=== PATIENT | female | born 1980 | race African-American/Black ===

== ENCOUNTER 2016-09-09 18:57 | Emergency (ER) | payer SELFPAY ==
[~2016-09-09] VITALS: Ht 165.1 cm; Wt 56.7 kg
[2016-09-09 18:57] VITALS: BP 134/69
[2016-09-09] MEDS ORDERED: HYDROmorphone PF 1 MG/ML DISP.SYRIN IV ONE (19:15)
[2016-09-09] MEDS ORDERED: ONDANSETRON PF 4 MG/2 ML VIAL. IV ONE (19:15)
[2016-09-09] MEDS ORDERED: ONDA4TAB7 PO (19:17)
[2016-09-09] MEDS ORDERED: MORP15TA PO (19:17)
--- NOTE | 2016-09-09 19:17 | PHYS DOC ---
Past History Past Medical History: Other Past Surgical History: Other Alcohol Use: Occasionally Drug Use: None Adult General Chief Complaint Chief Complaint: ABDOMINAL PAIN HPI HPI 36-year-old female presenting to the emergency department today with periumbilical abdominal pain this started about an hour ago. She describes it as a sharp pain that is moderate nonradiating and without alleviating factors. It is not migrating. It is not associated with nausea or vomiting. She denies constipation fevers chills. Last menstrual period was between 4-6 weeks ago. He denies vaginal bleeding. Review of systems is negative for chest pain shortness of breath fevers chills. All other review of systems is negative unless otherwise noted in history of present illness. Review of Systems Review of Systems SEE ABOVE. Current Medications Current Medications Current Medications Medications (Trade) Dose Ordered Sig/George Start Time Stop Time Status Last Admin Dose Admin Hydromorphone HCl (Dilaudid) 0.5 mg 1X ONCE 09/09/16 19:15 09/09/16 19:16 Ondansetron HCl (Zofran) 4 mg 1X ONCE 09/09/16 19:15 09/09/16 19:16 Allergies Allergies Allergies Coded Allergies Type Severity Reaction Last Updated Verified No Known Drug Allergies 11/13/15 No Physical Exam Physical Exam Constitutional: Well developed, well nourished, no acute distress, non-toxic appearance. HENT: Normocephalic, atraumatic, bilateral external ears normal, oropharynx moist, no oral exudates, nose normal. [] Eyes: PERRLA, EOMI, conjunctiva normal, no discharge. Neck: Normal range of motion, no tenderness, supple, no stridor. Cardiovascular:Heart rate regular rhythm, no murmur [] Lungs & Thorax: Bilateral breath sounds clear to auscultation Abdomen: Abdomen is soft and minimally tender in the periumbilical region. No rebound tenderness or guarding present. Negative McBurney's point. Negative Frausto sign. Skin: Warm, dry, no erythema, no rash. [] Back: No tenderness, no CVA tenderness. Extremities: No tenderness, no cyanosis, no clubbing, ROM intact, no edema. Neurologic: Alert and oriented X 3, normal motor function, normal sensory function, no focal deficits noted. [] Psychologic: Affect normal, judgement normal, mood normal. EKG EKG [] Radiology/Procedures Radiology/Procedures [] Course & Med Decision Making Course & Med Decision Making Pertinent Labs and Imaging studies reviewed. (See chart for details) [] 36-year-old female presenting to the emergency department with abdominal pain. Afebrile with a normal heart rate. Pertinent physical exam findings showed minimal tenderness in the periumbilical region. Labs were obtained. test was positive. Beta hCG elevated. Ultrasound showed possible early intrauterine without evidence of ectopic . Repeat abdominal exam showed a nontender soft abdomen. A positive blood type. The patient's pain was treated with hydromorphone and Zofran. On reexamination the patient's symptoms had improved. I recommended the patient get an outpatient repeat ultrasound and beta hCG level in 2-3 days through our obstetrics group. She demonstrated verbal understanding and return precautions were given. The patient was then discharged home in stable condition to follow up with their primary care physician over the next 2-3 days. They were to return if their symptoms worsened or if they were concerned for any reason. Irug-ho-oxds discharge instructions and return precautions were given. Patient's questions were answered to their satisfaction. Patient is comfortable plan. Dragon Disclaimer Dragon Disclaimer This chart was dictated in whole or in part using Voice Recognition software in a busy, high-work load, and often noisy Emergency Department environment. It may contain unintended and wholly unrecognized errors or omissions. Departure Departure: Impression: Primary Impression: Periumbilical abdominal pain Additional Impression: Disposition: 01 HOME, SELF-CARE Condition: STABLE Referrals: PCP,NO (PCP) NAZIA STRATTON MD Patient Instructions: Abdominal Pain Additional Instructions: Thank you for allowing us to participate in your care today. Followup with your primary care physician in 3 days if your symptoms do not improve. If you do not have a primary care provider you can ask for a list of our primary care providers. Return to the emergency department you have any new or concerning findings. This should be evaluated by the primary care physician and any necessary consulting services for continued management within a few days after discharge. Return to emergency room if you have any new or concerning symptoms including but not limited to fever, chills, nausea, vomiting, intractable pain, any new rashes, chest pain, shortness of air, uncontrolled bleeding, difficulty breathing, and/or vision loss. You may have been prescribed medication that can change in your level of thinking and ability to operate machinery. These medications include hydrocodone and Ativan. Also, Benadryl has been known to do this as well. Be sure to check with your pharmacist and ask if the medications you've prescribed can affect your level of consciousness. I recommend not operating heavy machinery or driving while on medication such as these. Scripts Ondansetron Hcl (ZOFRAN) 4 Mg Tablet 1 TAB PO PRN Q6HRS Y for NAUSEA, #6 TAB Prov: LEBRON NICHOLS MD 09/09/16 Problem Qualifiers LEBRON NICHOLS MD September 09, 2016 19:17
[2016-09-09 19:54] LABS: BASO # 0.1 x10^3/uL (0.0-0.2); BASO % 1 % (0-3); EOS # 0.1 x10^3/uL (0.0-0.7); EOS % 1 % (0-3); HEMATOCRIT 36.7 % (36.0-47.0); HEMOGLOBIN 12.3 g/dL (12.0-15.5); LYMPH # 3.6 x10^3/uL (1.0-4.8); LYMPH % 36 % (24-48); MEAN CORPUSCULAR HEMOGLOBIN 29 pg (25-35); MEAN CORPUSCULAR HGB CONC 34 g/dL (31-37); MEAN CORPUSCULAR VOLUME 87 fL (79-100); MONO # 0.4 x10^3/uL (0.0-1.1); MONO % 4 % (0-9); NEUT # 5.7 x10^3uL (1.8-7.7); NEUT % 58 % (31-73); PLATELET COUNT 186 x10^3/uL (140-400); WHITE BLOOD COUNT 9.9 x10^3/uL (4.0-11.0)
[2016-09-09 20:05] LABS: BILIRUBIN,URINE NEG (NEG); CLARITY,URINE HAZY; COLOR,URINE STRAW; GLUCOSE,URINE NEG (NEG); NITRITE,URINE NEG (NEG); RBC,URINE OCC /HPF (0-2); UROBILINOGEN,URINE 0.2 mg/dL (0.2 mg/dL)
[2016-09-09 20:06] LABS: ALBUMIN 3.7 g/dL (3.4-5.0); CALCIUM 8.6 mg/dL (8.5-10.1); CREATININE 0.5 mg/dL (0.6-1.0); DIRECT BILIRUBIN 0.1 mg/dL (0.0-0.2); GFR 169.9; POTASSIUM 3.8 mmol/L (3.5-5.1); TOTAL BILIRUBIN 0.3 mg/dL (0.2-1.0); TOTAL PROTEIN 6.9 g/dL (6.4-8.2)
[2016-09-09 20:07] LABS: AMORPHOUS SEDIMENT,UR PRESENT /HPF; BACTERIA,URINE 0 /HPF (0-FEW); SQUAMOUS EPITHELIAL CELL,UR MOD /LPF
[2016-09-09 20:13] LABS: PREG TEST PT QUAL POSITIVE (NEG)
[2016-09-09] MEDS ORDERED: IOHEXOL 300 MG/ML 75 ML VIAL. IV ONE (20:15)
--- NOTE | 2016-09-09 22:01 | RAD ---
PROCEDURE Ob ultrasound 1st trimester and transvaginal OB ultrasound HISTORY Abdominal pain TECHNIQUE Sonographic examination of the was performed by transabdominal and endovaginal technique. Multiple static images were obtained. OB ULTRASOUND 1ST TRIMESTER: The uterus measures 9.7 x 5.1 centimeters. There is a gestational sac. TRANSVAGINAL OB ULTRASOUND: The mean sac diameter of 1.26 centimeters corresponds with a 6 week 1 day gestational age. There is a yolk sac seen. There is no pole identified. The right ovary appears normal with normal blood flow measures 2.8 x 2.0 by 1.9 centimeters. The left ovary measures 3.7 x 2.4 by 2.3 centimeters ANCA and contains a 2.7 by 2.0 centimeter corpus luteal cyst. The LMP of 08/14/2016 corresponds with a 3 week 5 day gestational age estimated date of confinement May 21. The estimated size of 6 weeks 1 day corresponds with an estimated date of confinement of 05/04/2017. IMPRESSION There is a gestational sac and yolk sac in the uterus. A pole is not seen. An early intrauterine is possible. Recommend correlation with serial quantitative beta HCG versus a short-term followup ultrasound in order to document viability. Electronically signed by: Rickey Chen MD (September 09, 2016 22:00:13)
== END 2016-09-09 22:30 | disposition home or self-care (01) ==
LOC: ER 18:57
DX: R10.33 Periumbilical pain (principal); Z33.1 Pregnant state, incidental
CPT/HCPCS: 36415; 76801; 80048; 80076; 81001; 83690; 84702; 84703; 85027; 86850; 86900; 86901; 96374; 96375; 99285; J1170; J2405

== ENCOUNTER 2016-10-30 07:46 | Emergency (ER) | payer OTHER ==
[~2016-10-30] VITALS: Ht 165.1 cm; Wt 56.7 kg
[~2016-10-30 07:46] MED LIST: MORP15TA PO; ONDA4TAB7 PO
[2016-10-30] MEDS ORDERED: fentaNYL PF 100 MCG/2 ML VIAL IV PRN (08:15)
--- NOTE | 2016-10-30 08:44 | ED.ADGEN ---
Past History Past Medical History: UTI, Other Past Surgical History: Other Alcohol Use: Occasionally Drug Use: None Adult General Chief Complaint Chief Complaint Abdominal pain HPI HPI Patient is a 36 year old [place] female who presents with pain. She is a G6P for his last ventral period ended on August 02, 2016. She was diagnosed with a after she passed out in July but has not had a chance to follow-up for any OB care yet. She states she's been having intermittent abdominal pain that started in September she states is in the bilateral lower quadrants comes and goes she states they resolve by themselves. She states she's been having green stools and is normally regular with one bowel movement daily and out's every other day. She states, more hard and some of them are soft. She states today she bent over to warp picker a 5 pound bucket and started having left lower quadrant sharp pains is made better when she lays on her right side. She states she had a normal bowel movement and was passing gas last night. She denies any nausea or vomiting. She states she used to have Mirena but had PID and numerous trichomoniasis infections and the Mirena was placed incorrectly and had to be removed. Review of Systems Review of Systems Constitutional: Denies fever or chills [] Eyes: Denies change in visual acuity, redness, or eye pain [] HENT: Denies nasal congestion or sore throat [] Respiratory: Denies cough or shortness of breath [] Cardiovascular: No additional information not addressed in HPI [] GI: Positive for abdominal pain, Denies nausea, vomiting, bloody stools or diarrhea [] : Denies dysuria or hematuria [] Musculoskeletal: Denies back pain or joint pain [] Integument: Denies rash or skin lesions [] Neurologic: Denies headache, focal weakness or sensory changes [] Endocrine: Denies polyuria or polydipsia [] Current Medications Current Medications Current Medications Medications (Trade) Dose Ordered Sig/George Start Time Stop Time Status Last Admin Dose Admin Fentanyl Citrate (Fentanyl 2ml Vial) 50 mcg PRN Q15MIN PRN 10/30/16 08:15 10/31/16 08:14 10/30/16 09:01 50 MCG Ondansetron HCl (Zofran) 4 mg 1X ONCE 10/30/16 09:00 10/30/16 09:01 DC Allergies Allergies Allergies Coded Allergies Type Severity Reaction Last Updated Verified No Known Drug Allergies 11/13/15 No Physical Exam Physical Exam Constitutional: Well developed, well nourished, no acute distress, non-toxic appearance. [] HENT: Normocephalic, atraumatic, bilateral external ears normal, oropharynx moist, no oral exudates, nose normal. [] Eyes: PERRLA, EOMI, conjunctiva normal, no discharge. [] Neck: Normal range of motion, no tenderness, supple, no stridor. [] Cardiovascular:Heart rate regular rhythm, no murmur [] Lungs & Thorax: Bilateral breath sounds clear to auscultation [] Abdomen/pelvic: Bowel sounds normal, soft, no tenderness, no masses, no pulsatile masses. No cervical motion tenderness, mild tender palpation left lower quadrant, no bleeding noted Skin: Warm, dry, no erythema, no rash. [] Back: No tenderness, no CVA tenderness. [] Extremities: No tenderness, no cyanosis, no clubbing, ROM intact, no edema. [] Neurologic: Alert and oriented X 3, normal motor function, normal sensory function, no focal deficits noted. [] Psychologic: Affect normal, judgement normal, mood normal. [] Current Patient Data Vital Signs Vital Signs Date Time Temp Pulse Resp B/P (MAP) Pulse Ox O2 Delivery O2 Flow Rate FiO2 10/30/16 12:16 71 18 107/55 (72) 99 Room Air 10/30/16 07:46 98.4 Lab Results Laboratory Tests Test 10/30/16 08:30 10/30/16 08:34 Urine Collection Type Unknown Urine Color Yellow Urine Clarity Hazy Urine pH 7.5 Urine Specific Melvin 1.015 Urine Protein Neg (NEG-TRACE) Urine Glucose (UA) Neg mg/dL (NEG) Urine Ketones (Stick) Neg mg/dL (NEG) Urine Blood Trace (NEG) Urine Nitrite Neg (NEG) Urine Bilirubin Neg (NEG) Urine Urobilinogen Dipstick 0.2 mg/dL (0.2 mg/dL) Urine Leukocyte Esterase Neg (NEG) Urine RBC 1-2 /HPF (0-2) Urine WBC Occ /HPF (0-4) Urine Squamous Epithelial Cells Few /LPF Urine Bacteria 0 /HPF (0-FEW) Urine Mucus Slight /LPF White Blood Count 13.1 x10^3/uL (4.0-11.0) H Red Blood Count 4.10 x10^6/uL (3.50-5.40) Hemoglobin 12.2 g/dL (12.0-15.5) Hematocrit 36.8 % (36.0-47.0) Mean Corpuscular Volume 90 fL (79-100) Mean Corpuscular Hemoglobin 30 pg (25-35) Mean Corpuscular Hemoglobin Concent 33 g/dL (31-37) Red Cell Distribution Width 17.0 % (11.5-14.5) H Platelet Count 224 x10^3/uL (140-400) Neutrophils (%) (Auto) 75 % (31-73) H Lymphocytes (%) (Auto) 19 % (24-48) L Monocytes (%) (Auto) 5 % (0-9) Eosinophils (%) (Auto) 1 % (0-3) Basophils (%) (Auto) 0 % (0-3) Neutrophils # (Auto) 9.8 x10^3uL (1.8-7.7) H Lymphocytes # (Auto) 2.5 x10^3/uL (1.0-4.8) Monocytes # (Auto) 0.7 x10^3/uL (0.0-1.1) Eosinophils # (Auto) 0.1 x10^3/uL (0.0-0.7) Basophils # (Auto) 0.0 x10^3/uL (0.0-0.2) Prothrombin Time 9.6 SEC (9.4-11.4) Prothrombin Time INR 0.9 (0.9-1.1) PTT 25 SEC (23-33) Maternal Serum HCG Beta Subunit 68690 mIU/mL (0-6) H Sodium Level 137 mmol/L (136-145) Potassium Level 4.1 mmol/L (3.5-5.1) Chloride Level 103 mmol/L (98-107) Carbon Dioxide Level 26 mmol/L (21-32) Anion Gap 8 (6-14) Blood Urea Nitrogen 7 mg/dL (7-20) Creatinine 0.4 mg/dL (0.6-1.0) L Estimated GFR (Cockcroft-Gault) 219.8 Glucose Level 84 mg/dL (70-99) Calcium Level 8.4 mg/dL (8.5-10.1) L Magnesium Level 1.8 mg/dL (1.8-2.4) Total Bilirubin 0.3 mg/dL (0.2-1.0) Direct Bilirubin 0.1 mg/dL (0.0-0.2) Aspartate Amino Transferase (AST) 12 U/L (15-37) L Alanine Aminotransferase (ALT) 19 U/L (14-59) Alkaline Phosphatase 54 U/L (46-116) Total Protein 6.8 g/dL (6.4-8.2) Albumin 3.4 g/dL (3.4-5.0) Lipase 103 U/L (73-393) Microbiology 10/30/16 Wet Prep - Final, Complete Microbiology 10/30/16 Wet Prep - Final, Complete EKG EKG [] Radiology/Procedures Radiology/Procedures [address] [address] IMAGING REPORT Signed PATIENT: DANILO DE LUNA ACCOUNT: [id number] : 1980 LOCATION: ER AGE: 36 SEX: F EXAM STATUS: REG ER ORD. PHYSICIAN: DAMIEN GRIFFITH MD REASON: abd pain PROCEDURE: ABDOMEN COMPLETE Abdominal ultrasound, 10/30/2016: History: Severe abdominal pain The gallbladder is within normal limits in size. There is no sonographic evidence of cholelithiasis. The gallbladder bates are not thickened. No bile duct dilatation is seen. There is no evidence of a hepatic mass. The visualized portions of the kidneys, spleen, aorta and inferior vena cava are unremarkable. There is no evidence of a pancreatic mass. There is slight prominence of the pancreatic duct measuring approximately 3 mm. No abnormal peripancreatic fluid collection is evident. IMPRESSION: 1. Slight prominence of the pancreatic duct. 2. The abdominal ultrasound is otherwise unremarkable. DICTATED AND SIGNED BY: SHANA MAC MD DATE: 10/30/16 0959 CC: DAMIEN GRIFFITH MD; PCP,NO ~ [address] [address] IMAGING REPORT Signed PATIENT: DANILO DE LUNA ACCOUNT: [id number] : 1980 LOCATION: ER AGE: 36 SEX: F EXAM STATUS: REG ER ORD. PHYSICIAN: DAMIEN GRIFFITH MD REASON: abd pain PROCEDURE: OB <14 WKS Obstetrical ultrasound, 10/30/2016: History: Abdominal pain Transabdominal scans were obtained. The uterus is enlarged. It contains a single fetus in a variable orientation. The biparietal diameter measures 2.2 cm compatible with a gestational age of 13-14 weeks. This yields a sonographic EDC of 05/03/2017. activity and heart motion are seen. The heart rate was 162 bpm. An accurate survey cannot be performed at this early stage. A normal amount of an IV fluid is present. The developing placenta lies posteriorly. No periplacental hemorrhage is seen. The cervical length is 3.4 cm. There is a 2.1 cm cyst in the left ovary. There is blood flow in the left ovary. The right ovary could not be visualized. No free fluid is evident in the pelvis. IMPRESSION: 1. Single viable intrauterine fetus of 13-14 weeks gestational age as described above. 2. Small left ovarian cyst. DICTATED AND SIGNED BY: SHANA MAC MD DATE: 10/30/16 1003 CC: DAMIEN GRIFFITH MD; PCP,NO ~ RUN DATE: 10/30/16 [facility] LAB *LIVE* PAGE 1 RUN TIME: 1257 Specimen Inquiry PATIENT: DANILO DE LUNA ACCT: [id number] LOC: U : [id number] AGE/SX: 36/F ROOM: REG : 10/30/[address]: DAMIEN GRIFFITH MD : 1980 BED: DIS : STATUS: REG ER TLOC: SPEC #: [id number] LAMIN: 10/30/16 STATUS: COMP REQ #: [id number] RECD: 10/30/[address]: DAMIEN GRIFFITH MD SOURCE: VAGINAL ENTR: 10/30/[address]: [address] SPDESC: ORDERED: WET PREP COMMENTS: Has specimen been collected/obtained? Y Procedure Result WET PREP Final YEAST NONE SEEN TRICHOMONAS NONE SEEN CLUE CELLS CLUE CELLS PRESENT WBCS MODERATE SQUAMOUS EPS MODERATE END OF REPORT Course & Med Decision Making Course & Med Decision Making Pertinent Labs and Imaging studies reviewed. (See chart for details) Ultrasound was able visualize a left ovary and had good blood flow and this is where she is tender at. They were unable to visualize the right ovary. On pelvic exam she is mildly tender on the left lower quadrant. She does have BV and will treat with clindamycin for 7 days. She states she feels better and wanting to go home. I offered her treatment for sexual transmitted infections and she states that time she had sex is and she got back in July. She will need to follow-up with OB. She is instructed not to take Motrin or other nonsteroidals for she's and use Tylenol for discomfort and pain. She is not worried about a sexual transmitted infection is less time she had sex was in July when she became . She denies any vaginal discharge or bleeding. She is instructed to return back to ER for worsening pain, fevers, bleeding or other concerns. She is also written a prescription for vitamins and given a list of OB's in the [place] area. Final Impression Final Impression Bacterial vaginosis Abdominal pain in Problems: Dragon Disclaimer Dragon Disclaimer This electronic medical record was generated, in whole or in part, using a voice recognition dictation system. DAMIEN GRIFFITH MD Oct 30, 2016 08:43
[2016-10-30 08:45] LABS: BASO % 0 % (0-3); EOS # 0.1 x10^3/uL (0.0-0.7); EOS % 1 % (0-3); HEMATOCRIT 36.8 % (36.0-47.0); HEMOGLOBIN 12.2 g/dL (12.0-15.5); LYMPH # 2.5 x10^3/uL (1.0-4.8); LYMPH % 19 % (24-48); MEAN CORPUSCULAR HEMOGLOBIN 30 pg (25-35); MEAN CORPUSCULAR HGB CONC 33 g/dL (31-37); MEAN CORPUSCULAR VOLUME 90 fL (79-100); MONO # 0.7 x10^3/uL (0.0-1.1); MONO % 5 % (0-9); NEUT # 9.8 x10^3uL (1.8-7.7); NEUT % 75 % (31-73); PLATELET COUNT 224 x10^3/uL (140-400); WHITE BLOOD COUNT 13.1 x10^3/uL (4.0-11.0)
[2016-10-30] MEDS ORDERED: ONDANSETRON PF 4 MG/2 ML VIAL. IV ONE ×2 (09:00)
[2016-10-30 09:08] LABS: ALBUMIN 3.4 g/dL (3.4-5.0); CALCIUM 8.4 mg/dL (8.5-10.1); CREATININE 0.4 mg/dL (0.6-1.0); DIRECT BILIRUBIN 0.1 mg/dL (0.0-0.2); GFR 219.8; MAGNESIUM 1.8 mg/dL (1.8-2.4); POTASSIUM 4.1 mmol/L (3.5-5.1); TOTAL BILIRUBIN 0.3 mg/dL (0.2-1.0); TOTAL PROTEIN 6.8 g/dL (6.4-8.2)
[2016-10-30 09:39] LABS: BACTERIA,URINE 0 /HPF (0-FEW); BILIRUBIN,URINE NEG (NEG); CLARITY,URINE HAZY; COLOR,URINE YELLOW; GLUCOSE,URINE NEG (NEG); NITRITE,URINE NEG (NEG); SQUAMOUS EPITHELIAL CELL,UR FEW /LPF; UROBILINOGEN,URINE 0.2 mg/dL (0.2 mg/dL); WBC,URINE OCC /HPF (0-4)
--- NOTE | 2016-10-30 10:27 | RAD ---
Abdominal ultrasound, 10/30/2016: History: Severe abdominal pain The gallbladder is within normal limits in size. There is no sonographic evidence of cholelithiasis. The gallbladder bates are not thickened. No bile duct dilatation is seen. There is no evidence of a hepatic mass. The visualized portions of the kidneys, spleen, aorta and inferior vena cava are unremarkable. There is no evidence of a pancreatic mass. There is slight prominence of the pancreatic duct measuring approximately 3 mm. No abnormal peripancreatic fluid collection is evident. IMPRESSION: 1. Slight prominence of the pancreatic duct. 2. The abdominal ultrasound is otherwise unremarkable.
--- NOTE | 2016-10-30 10:27 | RAD ---
Obstetrical ultrasound, 10/30/2016: History: Abdominal pain Transabdominal scans were obtained. The uterus is enlarged. It contains a single fetus in a variable orientation. The biparietal diameter measures 2.2 cm compatible with a gestational age of 13-14 weeks. This yields a sonographic EDC of 05/03/2017. activity and heart motion are seen. The heart rate was 162 bpm. An accurate survey cannot be performed at this early stage. A normal amount of an IV fluid is present. The developing placenta lies posteriorly. No periplacental hemorrhage is seen. The cervical length is 3.4 cm. There is a 2.1 cm cyst in the left ovary. There is blood flow in the left ovary. The right ovary could not be visualized. No free fluid is evident in the pelvis. IMPRESSION: 1. Single viable intrauterine fetus of 13-14 weeks gestational age as described above. 2. Small left ovarian cyst.
[2016-10-30] MEDS ORDERED: CLIN300C8 PO (13:21)
[2016-10-30 13:33] VITALS: BP 123/70
[2016-10-31 19:09] LABS: CHLAMYDIA PROBE Negative (Negative)
== END 2016-10-30 13:35 | disposition home or self-care (01) ==
LOC: ER 07:46
DX: O26.891 Other specified pregnancy related conditions, first trimester (principal); N76.0 Acute vaginitis; O23.41 Unspecified infection of urinary tract in pregnancy, first trimester; Z3A.00 Weeks of gestation of pregnancy not specified
CPT/HCPCS: 36415; 76700; 76801; 80048; 80076; 81001; 83690; 83735; 84702; 85027; 85610; 85730; 87491; 87591; 96374; 99285; J3010; Q0111

== ENCOUNTER → 2016-11-02 | Outpatient (CLI) | payer OTHER ==
[~2016-11-02] MED LIST changes: +CLIN300C8 PO; +cefTRIAXone IM 250 MG VIAL IM ONE
[2016-11-02 12:06] VITALS: BP 143/77
--- NOTE | 2016-11-02 12:30 | NUR ---
Pt ambulated to unit for IM injection. VS taken per flowsheet. Rocephin IM given in right upper arm. Pt tolerated it well. Pt ambulated off unit.
== END | disposition home or self-care (01) ==
LOC: OPS 11:55
PROVIDERS: ATTEND Emergency Medicine
DX: A74.89 Other chlamydial diseases (principal)
CPT/HCPCS: 96372; J0696

== ENCOUNTER 2017-02-07 21:08 | Emergency (ER) | payer SELFPAY ==
[~2017-02-07] VITALS: Ht 165.1 cm; Wt 65.8 kg
[~2017-02-07 21:08] MED LIST changes: -cefTRIAXone IM 250 MG VIAL IM ONE
[2017-02-07] MEDS ORDERED: IV NORMAL SALINE 1,000ML 1,000 ML IV SCH (21:48)
[2017-02-07 22:18] LABS: BASO # 0.1 x10^3/uL (0.0-0.2); BASO % 1 % (0-3); EOS # 0.1 x10^3/uL (0.0-0.7); EOS % 1 % (0-3); HEMATOCRIT 31.9 % (36.0-47.0); LYMPH # 2.8 x10^3/uL (1.0-4.8); LYMPH % 22 % (24-48); MEAN CORPUSCULAR HEMOGLOBIN 31 pg (25-35); MEAN CORPUSCULAR HGB CONC 35 g/dL (31-37); MEAN CORPUSCULAR VOLUME 90 fL (79-100); MONO # 0.7 x10^3/uL (0.0-1.1); MONO % 5 % (0-9); NEUT # 9.1 x10^3uL (1.8-7.7); NEUT % 71 % (31-73); PLATELET COUNT 238 x10^3/uL (140-400); RED BLOOD COUNT 3.55 x10^6/uL (3.50-5.40); RED CELL DISTRIBUTION WIDTH 13.3 % (11.5-14.5); WHITE BLOOD COUNT 12.7 x10^3/uL (4.0-11.0)
[2017-02-07 22:34] LABS: AMPHETAMINE/METHAMPHETAMINE NEG (NEG); BARBITURATES NEG (NEG); BENZODIAZEPINES NEG (NEG); CANNABINOIDS POS (NEG); COCAINE NEG (NEG); METHADONE NEG (NEG); OPIATES NEG (NEG); PHENCYCLIDINE NEG (NEG)
[2017-02-07 22:40] LABS: CLARITY,URINE CLOUDY; COLOR,URINE AMBER; GLUCOSE,URINE NEG (NEG)
[2017-02-07 22:41] LABS: BACTERIA,URINE FEW /HPF (0-FEW); BILIRUBIN,URINE NEG (NEG); NITRITE,URINE NEG (NEG); SQUAMOUS EPITHELIAL CELL,UR FEW /LPF; UROBILINOGEN,URINE 1 mg/dL (0.2 mg/dL); WBC,URINE >40 /HPF (0-4)
[2017-02-07 22:47] LABS: ALBUMIN 2.9 g/dL (3.4-5.0); ALBUMIN/GLOBULIN RATIO 0.8 (1.0-1.7); CALCIUM 8.6 mg/dL (8.5-10.1); CREATININE 0.4 mg/dL (0.6-1.0); GFR 219.8; POTASSIUM 3.5 mmol/L (3.5-5.1); TOTAL BILIRUBIN 0.3 mg/dL (0.2-1.0); TOTAL PROTEIN 6.5 g/dL (6.4-8.2)
--- NOTE | 2017-02-07 23:38 | RAD ---
Limited OB ultrasound History: Pelvic pain, . Findings: There is a single intrauterine gestation in cephalic presentation. The placenta is posterior in location without evidence of placenta previa. The amount of amniotic fluid appears appropriate. Amniotic fluid index is 9.0 cm. Cervix is not well seen. Biometric data is as follows: BPD = 6.89 cm for 27 weeks 5 days. HC = 26.30 cm for 28 weeks 4 days. AC = 21.54 cm for 26 weeks 0 days. FL = 5.21 cm for 27 weeks 5 days. HC/AC = 1.22, within normal limits. Overall, the average ultrasound age is 27 weeks 4 days for an estimated date of delivery of May 05, 2017. Estimated gestational age by last menstrual period calculation is 27 weeks 0 days. Estimated weight is 1012 +/- 150 grams which is at 47th percentile. A 4 chamber heart is identified with positive cardiac activity. The estimated heart rate is 153 beats per minute. Complete survey of anomalies was not performed. Maternal ovaries are not visualized. IMPRESSION: 1. Single live intrauterine with average ultrasound age of 27 weeks 4 days. Electronically signed by: Jerome Irene MD (02/07/2017 11:34 PM) [facility]
--- NOTE | 2017-02-08 00:52 | ED.ADGEN ---
Past History Past Medical History: No Pertinent History Past Surgical History: No Surgical History Alcohol Use: None Drug Use: None Adult General Chief Complaint Chief Complaint ".. I am ... and It has been hurting really bad.,,, to pee..." HPI HPI Patient is a 36 year old female who presents with above hx and complaints of dysuria. Pt. denies any vaginal discharge or abdomen pain related to . Patient normally follows with . This is patient's 6 th . Has 4 live births and 1 Miscarry. Patient denies any trauma. Patient denies any immunosuppression. Patient denies any travel. Review of Systems Review of Systems Constitutional: Denies fever or chills [] Eyes: Denies change in visual acuity, redness, or eye pain [] HENT: Denies nasal congestion or sore throat [] Respiratory: Denies cough or shortness of breath [] Cardiovascular: No additional information not addressed in HPI [] GI: Denies abdominal pain, nausea, vomiting, bloody stools or diarrhea [] : Complains of dysuria and hematuria [] Musculoskeletal: Denies back pain or joint pain [] Integument: Denies rash or skin lesions [] Neurologic: Denies headache, focal weakness or sensory changes [] Endocrine: Denies polyuria or polydipsia [] Family History Family History Noncontributory Current Medications Current Medications Current Medications Medications (Trade) Dose Ordered Sig/George Start Time Stop Time Status Last Admin Dose Admin Ceftriaxone Sodium 1 gm/ Sodium Chloride 50 ml @ 100 mls/hr 1X ONCE 02/08/17 02:15 02/08/17 02:44 DC 02/08/17 02:15 100 MLS/HR Ceftriaxone Sodium (Rocephin) 1 gm STK-MED ONCE 02/08/17 02:25 02/08/17 02:26 DC Phenazopyridine HCl (Pyridium) 100 mg 1X ONCE 02/08/17 02:45 02/08/17 03:04 DC 02/08/17 02:45 100 MG Sodium Chloride 50 ml @ As Directed STK-MED ONCE 02/08/17 02:25 02/08/17 02:26 DC Allergies Allergies Allergies Coded Allergies Type Severity Reaction Last Updated Verified No Known Drug Allergies 11/13/15 No Physical Exam Physical Exam Constitutional: Well developed, well nourished, no acute distress, non-toxic appearance. [] HENT: Normocephalic, atraumatic, bilateral external ears normal, oropharynx moist, no oral exudates, nose normal. [] Eyes: PERRLA, EOMI, conjunctiva normal, no discharge. [] Neck: Normal range of motion, no tenderness, supple, no stridor. [] Cardiovascular:Heart rate regular rhythm, no murmur [] Lungs & Thorax: Bilateral breath sounds equal at apexes with scattered wheezes on auscultation [] Abdomen: Bowel sounds normal, soft, no generalized tenderness, no masses, no pulsatile masses. Gravid. movements. heart rate 150s. No obvious external vaginal discharge. Mild suprapubic tenderness Skin: Warm, dry, no erythema, no rash. [] Back: No tenderness, no CVA tenderness. [] Extremities: No tenderness, no cyanosis, no clubbing, ROM intact, no edema. [] Neurologic: Alert and oriented X 3, normal motor function, normal sensory function, no focal deficits noted. [] Psychologic: Affect anxious, judgement normal, mood normal. [] Current Patient Data Vital Signs Vital Signs Date Time Temp Pulse Resp B/P (MAP) Pulse Ox O2 Delivery O2 Flow Rate FiO2 02/07/17 22:15 91 18 142/77 (98) 100 Room Air 02/07/17 21:08 98.4 Lab Results Laboratory Tests Test 02/07/17 21:32 White Blood Count 12.7 x10^3/uL (4.0-11.0) H Red Blood Count 3.55 x10^6/uL (3.50-5.40) Hemoglobin 11.0 g/dL (12.0-15.5) L Hematocrit 31.9 % (36.0-47.0) L Mean Corpuscular Volume 90 fL (79-100) Mean Corpuscular Hemoglobin 31 pg (25-35) Mean Corpuscular Hemoglobin Concent 35 g/dL (31-37) Red Cell Distribution Width 13.3 % (11.5-14.5) Platelet Count 238 x10^3/uL (140-400) Neutrophils (%) (Auto) 71 % (31-73) Lymphocytes (%) (Auto) 22 % (24-48) L Monocytes (%) (Auto) 5 % (0-9) Eosinophils (%) (Auto) 1 % (0-3) Basophils (%) (Auto) 1 % (0-3) Neutrophils # (Auto) 9.1 x10^3uL (1.8-7.7) H Lymphocytes # (Auto) 2.8 x10^3/uL (1.0-4.8) Monocytes # (Auto) 0.7 x10^3/uL (0.0-1.1) Eosinophils # (Auto) 0.1 x10^3/uL (0.0-0.7) Basophils # (Auto) 0.1 x10^3/uL (0.0-0.2) Prothrombin Time 9.8 SEC (9.4-11.4) Prothrombin Time INR 1.0 (0.9-1.1) PTT 24 SEC (23-33) Urine Collection Type Unknown Urine Color Suzy Urine Clarity Cloudy Urine pH 6.5 Urine Specific [place] 1.025 Urine Protein 30 mg/dl (NEG-TRACE) Urine Glucose (UA) Neg mg/dL (NEG) Urine Ketones (Stick) >=160 mg/dL (NEG) Urine Blood Mod (NEG) Urine Nitrite Neg (NEG) Urine Bilirubin Neg (NEG) Urine Urobilinogen Dipstick 1 mg/dL (0.2 mg/dL) Urine Leukocyte Esterase Large (NEG) Urine RBC 6-10 /HPF (0-2) Urine WBC >40 /HPF (0-4) Urine Squamous Epithelial Cells Few /LPF Urine Bacteria Few /HPF (0-FEW) Urine Mucus Mod /LPF Sodium Level 135 mmol/L (136-145) L Potassium Level 3.5 mmol/L (3.5-5.1) Chloride Level 103 mmol/L (98-107) Carbon Dioxide Level 22 mmol/L (21-32) Anion Gap 10 (6-14) Blood Urea Nitrogen 12 mg/dL (7-20) Creatinine 0.4 mg/dL (0.6-1.0) L Estimated GFR (Cockcroft-Gault) 219.8 BUN/Creatinine Ratio 30 (6-20) H Glucose Level 112 mg/dL (70-99) H Calcium Level 8.6 mg/dL (8.5-10.1) Total Bilirubin 0.3 mg/dL (0.2-1.0) Aspartate Amino Transferase (AST) 13 U/L (15-37) L Alanine Aminotransferase (ALT) 19 U/L (14-59) Alkaline Phosphatase 79 U/L (46-116) Creatine Kinase 76 U/L (26-192) Creatine Kinase MB (Mass) 1.1 ng/mL (0.0-3.6) Creatine Kinase MB Relative Index 1.4 % (0-4) Total Protein 6.5 g/dL (6.4-8.2) Albumin 2.9 g/dL (3.4-5.0) L Albumin/Globulin Ratio 0.8 (1.0-1.7) L Lipase 189 U/L (73-393) Urine Opiates Screen Neg (NEG) Urine Methadone Screen Neg (NEG) Urine Barbiturates Neg (NEG) Urine Phencyclidine Screen Neg (NEG) Urine Amphetamine/Methamphetamine Neg (NEG) Urine Benzodiazepines Screen Neg (NEG) Urine Cocaine Screen Neg (NEG) Urine Cannabinoids Screen Pos (NEG) Urine Ethyl Alcohol Neg (NEG) EKG EKG [] Radiology/Procedures Radiology/Procedures Ultrasound shows intrauterine . 27 weeks 4 days. No acute findings.[] Course & Med Decision Making Course & Med Decision Making Pertinent Labs and Imaging studies reviewed. (See chart for details) Counseled patient on smoking cessation. Patient take Keflex 500 mg 3 times a day. Patient to follow-up cultures with OB. Patient continue vitamins. Patient return if any concerns. [] Final Impression Final Impression 1. Dysuria 2. Gravid 3. UTI 4. Leukocytosis 5. Anemia 6. A positive blood type 7. Tobacco and marijuana use [] Problems: Dragon Disclaimer Dragon Disclaimer This electronic medical record was generated, in whole or in part, using a voice recognition dictation system. LIBBY CROW MD Feb 08, 2017 00:52
[2017-02-08] MEDS ORDERED: CEPH-264 PO (02:20)
[2017-02-08] MEDS ORDERED: IV NORMAL SALINE 50ML 50 ML ONE (02:25)
[2017-02-08] MEDS ORDERED: cefTRIAXone SODIUM 1 GM VIAL IV ONE (02:25)
[2017-02-08 02:31] VITALS: BP 120/65
[2017-02-08] MEDS ORDERED: PHENAZOPYRIDINE 100 MG TABLET. PO ONE (02:45)
== END 2017-02-08 03:05 | disposition home or self-care (01) ==
LOC: ER 21:08
DX: O23.42 Unspecified infection of urinary tract in pregnancy, second trimester (principal); O99.012 Anemia complicating pregnancy, second trimester; O99.322 Drug use complicating pregnancy, second trimester; O99.332 Smoking (tobacco) complicating pregnancy, second trimester; O99.112 Other diseases of the blood and blood-forming organs and certain disorders involving the immune mechanism complicating pregnancy, second trimester; D72.829 Elevated white blood cell count, unspecified; F12.90 Cannabis use, unspecified, uncomplicated; Z3A.27 27 weeks gestation of pregnancy
CPT/HCPCS: 36415; 76815; 80053; 80307; 81001; 82553; 83690; 85025; 85610; 85730; 86900; 86901; 87086; 96361; 96365; 99285; J0696; G0479; J7030

== ENCOUNTER 2017-04-16 12:45 | Emergency (ER) | payer SELFPAY ==
[2017-04-16 12:45] VITALS: BP 130/77
[~2017-04-16 12:45] MED LIST changes: +CEPH-264 PO
--- NOTE | 2017-04-16 13:06 | ED.ADGEN ---
Past History Past Medical History: No Pertinent History Past Surgical History: No Surgical History Alcohol Use: None Drug Use: None Adult General Chief Complaint Chief Complaint Labor [facility] HPI Patient is a G6, P5, 36-year-old 37 week gestation female who presents with intermittent abdominal cramping, back pain consistent with labor. Symptoms began 4 hours prior to ED arrival and continued to increase in frequency and intensity. Patient denies motor breaking vaginal bleeding. No complications with current . Ports movement with heart rate of 140s. Patient receives OB care at [facility] per Dr. Dupree. Patient was at work once again was driven to the ED by a coworker.[] Review of Systems Review of Systems ROS as per HPI. All other ROS are negative. [] All other systems were reviewed and found to be within normal limits, except as documented in this note. Current Medications Current Medications Current Medications Medications (Trade) Dose Ordered Sig/George Start Time Stop Time Status Last Admin Dose Admin Fentanyl Citrate (Fentanyl 2ml Vial) 50 mcg 1X ONCE 04/16/17 13:15 04/16/17 13:16 DC 04/16/17 13:11 50 MCG Ondansetron HCl (Zofran) 4 mg 1X ONCE 04/16/17 13:15 04/16/17 13:16 DC 04/16/17 13:10 4 MG Sodium Chloride 1,000 ml @ 1,000 mls/hr 1X ONCE 04/16/17 13:15 04/16/17 13:47 DC 04/16/17 13:10 1,000 MLS/HR Allergies Allergies Allergies Coded Allergies Type Severity Reaction Last Updated Verified No Known Drug Allergies 11/13/15 No Physical Exam Physical Exam Constitutional: Well developed, well nourished, moderate discomfort secondary to pain. . [] HENT: Normocephalic, atraumatic, bilateral external ears normal. [] Eyes: PERRLA, EOMI. [] Neck: Normal range of motion, no tenderness, supple, no stridor. [] Cardiovascular:Heart rate regular rhythm, no murmur [] Lungs & Thorax: Bilateral breath sounds clear to auscultation [] Abdomen: Bowel sounds normal, soft, no tenderness, abdomen with fundus below diaphragm. [] : No , fluid leaking, cervix effaced, not dilated. [] Back: No CVA tenderness. [] Extremities: No tenderness. [] Neurologic: Alert and oriented X 3, normal motor function. [] Psychologic: Affect normal, judgement normal, mood normal. [] Current Patient Data Vital Signs Vital Signs Date Time Temp Pulse Resp B/P (MAP) Pulse Ox O2 Delivery O2 Flow Rate FiO2 04/16/17 12:45 98.6 79 18 99 Room Air EKG EKG [] Radiology/Procedures Radiology/Procedures [] Course & Med Decision Making Course & Med Decision Making Pertinent Labs and Imaging studies reviewed. (See chart for details) [] Final Impression Final Impression [1. Dyspnea 2. Acute congestive heart failure 3. Pulmonary infiltrate 4. Leukopenia 5. Lymphoma] Problems: Dragon Disclaimer Dragon Disclaimer This electronic medical record was generated, in whole or in part, using a voice recognition dictation system. BASILIO PUENTE DO Apr 16, 2017 13:06
[2017-04-16] MEDS ORDERED: ONDANSETRON PF 4 MG/2 ML VIAL. IV ONE (13:15)
[2017-04-16] MEDS ORDERED: IV NORMAL SALINE 1,000ML 1,000 ML IV ONE (13:15)
== END 2017-04-16 13:40 | disposition short-term general hospital (02) ==
LOC: ER 12:45
DX: O99.513 Diseases of the respiratory system complicating pregnancy, third trimester (principal); O99.113 Other diseases of the blood and blood-forming organs and certain disorders involving the immune mechanism complicating pregnancy, third trimester; I50.9 Heart failure, unspecified; R06.00 Dyspnea, unspecified; C85.90 Non-Hodgkin lymphoma, unspecified, unspecified site; D72.819 Decreased white blood cell count, unspecified; R91.8 Other nonspecific abnormal finding of lung field; Z3A.37 37 weeks gestation of pregnancy
CPT/HCPCS: 96374; 96375; 99285; J2405; J3010; 96361; J7030